=== PATIENT | male | born 1935 | race Caucasian/White ===

== ENCOUNTER 2020-11-07 12:16 | Emergency (ER) | payer OTHER ==
[~2020-11-07] VITALS: Ht 177.8 cm; Wt 113.4 kg
[2020-11-07] MEDS ORDERED: LISINOPRIL10 MG PO (12:32)
[2020-11-07] MEDS ORDERED: LISINOPRIL-HCT1 EAC1 PO (12:49)
[2020-11-07] MEDS ORDERED: LOVASTATIN 20 M20 MG PO (12:49)
[2020-11-07 12:50] LABS: ABSOLUTE BASOPHILS 0.1 thou/uL (0.0-0.2); ABSOLUTE EOSINOPHILS 0.1 thou/uL (0.0-0.7); ABSOLUTE LYMPHOCYTES 1.2 thou/uL (0.8-5.3); ABSOLUTE MONOCYTES 0.5 thou/uL (0.0-1.2); ABSOLUTE NEUTROPHILS 9.1 thou/uL (1.6-8.1); BASOPHILS 0.6 %; EOSINOPHILS 0.5 %; HEMATOCRIT 44.2 % (42.0-52.0); HEMOGLOBIN 15.5 gm/dL (14.0-18.0); LYMPHOCYTES 11.1 %; MCH 33.2 pg (26.0-34.0); MCHC 35.2 g/dL (28.0-37.0); MCV 94.4 fL (80.0-100.0); MONOCYTES 4.4 %; MPV 6.5 fl. (7.2-11.1); NUCLEATED RBCS 0 /100WBC; PLATELET COUNT* 339 thou/uL (150-400); POLYS 83.4 %; RBC 4.68 mil/uL (4.50-6.00); RDW-CV 13.5 % (10.5-14.5); WBC 10.9 thou/uL (4.0-11.0)
[2020-11-07] MEDS ORDERED: CHILDREN'S ASPI81 MG PO (12:50)
[2020-11-07] MEDS ORDERED: OMEPRAZOLE 20 M20 M1 PO (12:51)
[2020-11-07 13:08] LABS: CREATININE 1.2 mg/dL (0.6-1.3); POTASSIUM 3.7 mmol/L (3.5-5.1)
[2020-11-07 13:11] LABS: ALBUMIN 4.3 g/dL (3.4-5.0); DIRECT BILIRUBIN 0.3 mg/dL (<0.1-0.3); MAGNESIUM 1.8 mg/dL (1.8-2.4)
[2020-11-07] MEDS ORDERED: TYLENOL325 M1 PO (14:57)
[2020-11-07 15:23] LABS: URINE BILIRUBIN NEGATIVE (Negative); URINE BLOOD TRACE (Negative); URINE CLARITY CLEAR; URINE COLOR YELLOW; URINE GLUCOSE-RANDOM NEGATIVE (Negative); URINE KETONES 1+ (Negative); URINE LEUKOCYTES NEGATIVE (Negative); URINE NITRITE NEGATIVE (Negative); URINE PROTEIN TRACE (Negative); URINE SPECIFIC GRAVITY 1.025 (1.005-1.030)
[2020-11-07 15:37] VITALS: BP 163/91
--- NOTE | 2020-11-08 14:10 | EKG ---
[place] [address] ELECTROCARDIOGRAM REPORT Name: ADWOA DELA CRUZ Room: [facility]#: [id number] Admission: 11/07/20 Attend Phys: Discharge: 11/07/20 Date of : 35 Date of Service: 11/07/20 1249 Report #: [id number] THIS REPORT FOR: //name// [facility] ED Test Date: 2020-11-07 Test Time: 12:49:42 Pat Name: ADWOA DELA CRUZ Department: Room: Gender: [employer]: STUDENT : 1935 Requested By: Ron Mustafa Order Number: [id number] Kamar MD: Adwoa Harding Measurements Intervals [address] Rate: 116 P: 13 AR: 140 QRS: 91 QRSD: 122 T: -1 QT: 341 QTc: 474 Interpretive Statements Sinus tachycardia Multiple premature complexes, vent & supraven Nonspecific intraventricular conduction delay Minimal ST depression, inferior leads No previous ECG available for comparison Electronically Signed On 11-08-2020 14:10:48 EPIC AMBULATORY ANALYST by Adwoa Harding [email or web address] <ELECTRONICALLY SIGNED> By: Adwoa Harding MD, [facility] 11/08/20 1410 1249 1249 Adwoa Harding MD, [facility] /EPI
== END 2020-11-07 15:38 | disposition home or self-care (01) ==
LOC: M.ERS 12:16
PROVIDERS: Emergency Medicine
DX: S51.812A Laceration without foreign body of left forearm, initial encounter (principal); S39.012A Strain of muscle, fascia and tendon of lower back, initial encounter; E86.0 Dehydration; F43.20 Adjustment disorder, unspecified; R53.1 Weakness; I10 Essential (primary) hypertension; E78.5 Hyperlipidemia, unspecified; K21.9 Gastro-esophageal reflux disease without esophagitis; E78.00 Pure hypercholesterolemia, unspecified; W18.39XA Other fall on same level, initial encounter; Y93.89 Activity, other specified; Y92.89 Other specified places as the place of occurrence of the external cause; Y99.8 Other external cause status